=== PATIENT | male | born 1985 | race Two or more races ===

== ENCOUNTER 2019-04-28 16:29 | Emergency (ER) | payer MEDICAID ==
[~2019-04-28] VITALS: Ht 165.1 cm; Wt 78.0 kg
[2019-04-28 16:46] VITALS: BP 100/74
== END 2019-04-28 17:38 | disposition left against medical advice (07) ==
LOC: ER 16:29
DX: Z53.21 Procedure and treatment not carried out due to patient leaving prior to being seen by health care provider (principal)

== ENCOUNTER 2019-04-28 21:11 | Emergency (ER) | payer MEDICAID ==
[~2019-04-28] VITALS: Ht 162.6 cm; Wt 80.0 kg
[2019-04-28] MEDS ORDERED: KETOROLAC 60MG/2ML VIAL IM ONE (22:00)
[2019-04-29 00:48] VITALS: BP 119/74
== END 2019-04-29 00:49 | disposition home or self-care (01) ==
LOC: ER 21:11
DX: R51 Headache (principal); M54.5 Low back pain; W18.39XA Other fall on same level, initial encounter; Y93.66 Activity, soccer; Y92.89 Other specified places as the place of occurrence of the external cause; Y99.8 Other external cause status
CPT/HCPCS: 70450; 72131; 96372; 99285; J1885